=== PATIENT | female | born 1970 | race African-American/Black ===

== ENCOUNTER 2017-11-15 08:42 | Emergency (ER) | payer OTHER ==
[~2017-11-15] VITALS: Ht 162.6 cm; Wt 146.7 kg
[2017-11-15 09:20] LABS: BASOPHIL (%) 0.6 % (0-1); BASOPHIL COUNT 0.1 K/uL (0-0.1); EOSINOPHIL (%) 2.2 % (0-5); EOSINOPHIL COUNT 0.2 K/uL (0-0.3); HEMATOCRIT 39.5 % (36.0-46.0); HEMOGLOBIN 12.6 G/DL (11.9-15.5); IMMATURE GRANULOCYTE (%) 0.6 % (0.0-0.7); LYMPHOCYTE (%) 24.4 % (15-42); LYMPHOCYTE COUNT 2.4 K/uL (1.0-2.8); MCH 27.5 PG (29.0-34.0); MCHC 31.9 G/DL (30.0-36.0); MCV 86.1 FL (83-99); MONOCYTE (%) 8.5 % (3-12); MONOCYTE COUNT 0.8 K/uL (0-0.8); NEUTROPHIL (%) 63.7 % (45-76); NEUTROPHIL COUNT 6.2 K/uL (1.8-6.4); PLATELET COUNT 330 K/uL (156-360); RBC DIS.WIDTH-CV 15.3 % (11.8-14.6); RBC DIS.WIDTH-SD 48.2 % (39-53); RED BLOOD COUNT 4.59 M/uL (3.80-5.20); WHITE BLOOD COUNT 9.7 K/uL (4.1-10.2)
[2017-11-15 09:29] LABS: INTER. NORMALIZED RATIO 1.1
[2017-11-15 09:30] LABS: ALBUMIN 3.7 g/dL (3.2-4.8); CHLORIDE 110 mEq/L (99-109); POTASSIUM 4.2 mEq/L (3.7-5.4); SODIUM 141 mEq/L (136-147)
[2017-11-15 09:31] LABS: MAGNESIUM 2.2 mg/dL (1.3-2.7)
[2017-11-15 09:32] LABS: GLUCOSE 96 mg/dL (70-99); PTT 29.9 SEC (25-37)
[2017-11-15 09:33] LABS: TOTAL PROTEIN 7.4 g/dL (6.4-8.3)
[2017-11-15 09:34] LABS: TOTAL BILIRUBIN 0.6 mg/dL (0.0-1.0)
[2017-11-15 09:36] LABS: ALKALINE PHOSPHATASE 86 IU/L (3-129); CREATININE 0.9 mg/dL (0.6-1.3); GFR ESTIMATE (CALCULATED) > 59 mL/min/
[2017-11-15 09:37] LABS: UREA NITROGEN (BUN) 13 mg/dL (9-23)
[2017-11-15 09:38] LABS: AST (GOT) 14 IU/L (2-34)
[2017-11-15 09:39] LABS: ALT (GPT) 11 IU/L (3-49)
[2017-11-15 09:45] LABS: TROP-I INTERPRETATION NEGATIVE; TROPONIN-I < 0.01 ng/mL (0.0-0.30)
[2017-11-15 13:08] LABS: TROP-I INTERPRETATION NEGATIVE; TROPONIN-I < 0.01 ng/mL (0.0-0.30)
[2017-11-15 13:35] VITALS: BP 165/85
== END 2017-11-15 13:35 | disposition home or self-care (01) ==
LOC: EME 08:42
PROVIDERS: Emergency Medicine
DX: I16.1 Hypertensive emergency (principal); R51 Headache; R07.9 Chest pain, unspecified; R20.2 Paresthesia of skin; E78.5 Hyperlipidemia, unspecified
CPT/HCPCS: 70450; 71045; 80053; 83735; 84484; 85025; 85610; 85730; 93005; 99281; 99285